=== PATIENT | female | born 1985 | race Caucasian/White ===

== ENCOUNTER 2017-06-10 17:37 | Emergency (ER) | payer MEDICAID, OTHER ==
[~2017-06-10] VITALS: Ht 162.6 cm; Wt 54.0 kg
[2017-06-10] MEDS ORDERED: ACETAMINOPHEN 325MG TABLET PO ONE (20:45)
[2017-06-10] MEDS ORDERED: KETOROLAC 60MG/2ML VIAL IM ONE (20:45)
[2017-06-10 22:12] VITALS: BP 129/76
== END 2017-06-10 22:16 | disposition home or self-care (01) ==
LOC: ER 19:22
DX: M25.562 Pain in left knee (principal); M25.561 Pain in right knee; M25.522 Pain in left elbow; M25.521 Pain in right elbow; M81.8 Other osteoporosis without current pathological fracture; J45.909 Unspecified asthma, uncomplicated
CPT/HCPCS: 96372; 99283; J1885; Z7610